=== PATIENT | male | born 1995 | race Caucasian/White ===

== ENCOUNTER 2021-10-17 11:05 | Emergency (ER) | payer OTHER, SELFPAY ==
[2021-10-17 11:14] VITALS: BP 150/83; PULSE 81; RESP 18; TEMP 36.6; O2SAT 100
--- NOTE | 2021-10-17 11:40 | EKG12_ITS ---
Test Reason : CP Blood Pressure : / mmHG Vent. Rate : 083 BPM Atrial Rate : 083 BPM P-R Int : 162 ms QRS Dur : 100 ms QT Int : 366 ms P-R-T Axes : 038 007 024 degrees QTc Int : 430 ms Normal sinus rhythm with sinus arrhythmia Normal ECG Confirmed by SHELLEY BRANHAM, DIANELYS ([id number]), book editor DAVIDA ALY ([id number]) on 10/19/2021 1:08:33 PM Referred By: ER Confirmed By:DIANELYS ROSA MD
--- NOTE | 2021-10-17 11:41 | ED.VIS.CHEST ---
HPI History of Present Illness Chief Complaint: Chest Pain Narrative Narrative: 26-year-old male with no significant medical history presenting with chest pain. He states he had it from about 4-10 30. He states it felt like his chest was little heavy. He does have the symptoms with anxiety and does take an organic drop for this which she did not take this morning. The pain lasted while he was at work and he was checked out by the nurse there who checked his blood pressure and stated it was normal. She stated that she had noticed some irregular heartbeats but other than this he physically looks fine. He has no history of heart disease and has no family history of early cardiac disease. No history of DVT/PE and no risk factors. Patient currently is pain-free. No shortness of breath. No fever or cough. PFSH PFSH Medical History Anxiety Allergy/AdvReac Type Severity Reaction Status Date / Time No Known Allergies Allergy Verified 03/28/14 13:06 Surgical History no surgical history Social History Smoking Status: Never smoker ROS ROS ED Constitutional Constitutional ED: Denies chills or fever(s) Eyes Eyes: Denies blurry vision or change in vision ENT ENT ED: Denies rhinorrhea or sore throat Cardiovascular Cardiovascular: Reports as per HPI Respiratory/Chest Respiratory/Chest: Denies cough, dyspnea or sputum Gastrointestinal Gastrointestinal: Denies abdominal pain, nausea or vomiting Genitourinary Genitourinary ED: Denies dysuria or hematuria Musculoskeletal Musculoskeletal: Denies arthralgias or myalgias Integumentary Denies rash Neurologic Neurologic: Denies headache(s), paresthesias or weakness Psychiatric Psychiatric: Reports anxiety; Denies depression EXAM Physical Exam Const Vital Signs: 10/17/21 11:14 10/17/21 11:44 Temperature 97.9 F Temperature Source Temporal Pulse Rate 81 Respiratory Rate 18 Blood Pressure 150/83 H Blood Pressure Mean 105 Pulse Ox 100 Oxygen Delivery Method Room Air Room Air Positive well nourished General Appearance ED: NAD; Negative for pallor HEENT Reports moist mucous membranes normocephalic and atraumatic Eyes PERRL and EOMs intact bilaterally Chest Wall inspection of chest normal and palpation of chest normal Resp normal respiratory effort and clear to auscultation bilaterally Auscultation: Negative for rales, rhonchi or wheezes Cardio regular rate and regular rhythm Extremity normal to inspection General Extremety ED: Negative for edema or tenderness General Extremity: Negative for edema Neuro oriented x3 Sensorium / Orientation: awake and alert Psych mental status grossly normal Skin General Skin Exam: Negative for jaundice or pallor Heart Score History: Slightly/Non-Suspicious ECG: Normal Age: </= 45 years Risk Factors: No Risk Factors Troponin: </= Normal Limit Score: 0 MDM MDM MDM Narrative Medical decision making narrative: 26-year-old male presenting with history of chest pain this morning. He stated it felt like heaviness. It did not radiate. He had no lightheadedness or dizziness. No shortness of breath. He was seen by the nurse at work and she told him that he had an irregular heart rhythm on the monitor. EKG on my interpretation shows a normal sinus rhythm with a ventricular rate of 83 bpm with a slight sinus arrhythmia. No ST elevation or depression. CBC and BMP are unremarkable. Patient is PERC negative. High-sensitivity troponin is less than 3 and given that he had pain for about 6 hours I believe this rules out ACS. Patient has no other risk factors. Patient stable for discharge at this time. Impression: 1. Chest pain, noncardiac 2. Palpitations Lab Data Attestation: I reviewed the patient's lab results. Labs: Laboratory Results - last 24 hr 10/17/21 10/17/21 10/17/21 11:20 11:20 11:20 WBC 6.1 RBC 4.77 Hgb 14.6 Hct 42.1 MCV 88.3 MCH 30.6 MCHC 34.7 RDW Std Deviation 37.3 RDW Coeff of Mayela 11.5 L Plt Count 292 MPV 10.0 Immature Gran % (Auto) 0.500 Neut % (Auto) 59.3 Lymph % (Auto) 26.2 [place] % (Auto) 10.0 Eos % (Auto) 3.5 Baso % (Auto) 0.5 Absolute Neuts (auto) 3.6 Absolute Lymphs (auto) 1.59 Nucleated RBC % 0 Sodium 136 Potassium 3.7 Chloride 103 Carbon Dioxide 30.0 Anion Gap 3 L BUN 11 Creatinine 0.88 Estim Creat Clear Calc 173.52 Est GFR (MDRD) Af Amer 135 Est GFR (MDRD) Non-Af 111 BUN/Creatinine Ratio 12.4 Glucose 99 Calcium 8.8 Troponin I High Sens < 3 L Radiography Diagnostic Testing: Clinical Impression(s) from Imaging Studies Chest X-Ray 10/17/21 11:52 IMPRESSION: Normal x-ray examination of the chest. Electronically Signed: Mitchell Deutsch MD at 12:05 EDT Reading Location ID and State: [facility] / [place] , Service support , Discharge Plan Triage Chief Complaint: Chest Pain ED Provider: Brent Jnoes Dx/Rx/DC Orders Primary Care Provider: Care Physician,No Primary
[2021-10-17] MEDS: Aspirin 81 MG TAB.CHEW 324 MG PO (11:48)
--- NOTE | 2021-10-17 11:52 | RAD_ITS ---
STUDY: X-RAY CHEST REASON FOR EXAM: Male, 26 years old. Chest pain TECHNIQUE: Single AP portable view of the chest. COMPARISON: Comparison is made with prior study dated 03/28/2014. FINDINGS: EKG electrodes are seen. The lungs are clear and expanded. There is no demonstrated pleural abnormality. Normal size heart. Normal mediastinum and tad. Normal visualized pulmonary arteries. Normal visualized aortic arch and descending thoracic aorta. Normal visualized thoracic spine. Normal visualized ribs, clavicles, and shoulders. There is no demonstrated abnormality of the visualized soft tissue structures of the upper abdomen. RAD/Chest 1 View (Portable) IMPRESSION: Normal x-ray examination of the chest. Electronically Signed: Mitchell Deutsch MD at 12:05 EDT ,
[2021-10-17 12:05] LABS: Absolute Lymphocyte Count 1.59 X10^3/uL (0.83-4.51); Absolute Neutrophil Count 3.6 X10^3/uL (2.0-7.7); Anion Gap 3 (5-15); BUN 11 mg/dL (7-18); BUN/Creat Ratio 12.4 RATIO (10-20); Basophil# 0.03 X10^3/uL; Basophil% 0.5 % (0-1); Calcium,Total 8.8 mg/dL (8.5-10.1); Chloride 103 mmol/L (98-107); Creatinine, Serum 0.88 mg/dL (0.70-1.30); EST Glomerular Filtration Rate 111 mL/min (>60); Eosinophil# 0.21 X10^3/uL; Eosinophils% 3.5 % (0-5); Est Glom Filt Rate - Afr Amer 135 mL/min (>60); Estimated Creatinine Clearance 173.52 ml/min; Glucose 99 mg/dL (74-106); Hematocrit 42.1 % (40-54); Hemoglobin 14.6 g/dL (13.0-16.5); Lymphocyte # 1.59 X10^3/ul (0.83-4.51); Lymphocyte % 26.2 % (19-41); Mean Corp Hgb Conc 34.7 g/dL (32-36); Mean Corpuscular Hgb 30.6 pg (27.0-32.0); Mean Corpuscular Volume 88.3 fL (80-94); Monocyte# 0.61 X10^3/uL; NRBC Flagged by Analyzer 0 % (0-5); Neutrophil # 3.61 X10^3/uL (2.7-7.7); Neutrophil % 59.3 % (47-70); Platelet Count 292 K/mm3 (150-450); Potassium 3.7 mmol/L (3.5-5.1); RBC Distribution Width CV 11.5 % (11.6-14.6); RBC Distribution Width SD 37.3 fl (35.1-43.9); Red Blood Count 4.77 M/mm3 (4.6-6.2); Sodium Level 136 mmol/L (136-145); White Blood Count 6.1 K/mm3 (4.4-11.0)
[2021-10-17 12:15] LABS: Troponin-I HS (w/2H Reflex) < 3 pg/mL (3.0-78.0)
[2021-10-17 13:47] LABS: Reflex Troponin-HS? (from REC) Y
== END 2021-10-17 12:30 | disposition home or self-care (01) ==
PROVIDERS: Emergency Provider Student in an Organized Health Care Education/Training Program; Visit Provider Student in an Organized Health Care Education/Training Program
DX: R07.89 Other chest pain (principal); R00.2 Palpitations
CPT/HCPCS: 71045; 80048; 84484; 85025; 93005; 99284; A4216

== ENCOUNTER 2024-01-16 10:17 | Emergency (ER) | payer BC, SELFPAY ==
[2024-01-16 10:18] VITALS: BP 125/85; PULSE 58; RESP 16; TEMP 36.4; O2SAT 97; BMI 28.1
[2024-01-16 10:20] VITALS: BP 125/85; PULSE 52; RESP 16; TEMP 36.4; O2SAT 97
--- NOTE | 2024-01-16 10:46 | EDS_ITS ---
HPI History of Present Illness Chief Complaint: Dental Informant: patient Onset/Context/Timing Onset: Days (3) Context: Gradual Onset Timing: Continuous Quality: Aching Location: Right lower molar Worsened by: Nothing Relieved by: - (Nothing) Associated Symptoms Assocated Symptom - Dental: Negative for fever, jaw swelling, face swelling, cold sensitivity or hot sensitivity Narrative Narrative: Patient presents with right lower dental pain that began 3 days ago. Patient states he went to urgent care and was given a prescription for amoxicillin. Patient states he has been on amoxicillin for the past 2 days. Patient states his pain has improved. Patient describes the pain as aching. Patient states the pain is mainly over the right lower molar. Patient states nothing makes his pain better and nothing makes it worse. Patient admits to some hot and cold sensitivity yesterday but denies any sensitivity today. Patient denies any fevers or chills. Patient denies any swelling of his jaw or face. Patient sta del he did have some nausea and vomiting yesterday but this has resolved. Patient states he does not have a dentist. PFSH PFS Medical History Anxiety Allergy/AdvReac Type Severity Reaction Status Date / Time No Known Allergies Allergy Verified 01/16/24 10:20 no surgical history Social History Smoking Status: Never smoker ROS ROS ED Constitutional Constitutional ED: Denies chills or fever(s) Eyes Eyes: Denies blurry vision or change in vision ENT ENT ED: Denies rhinorrhea or sore throat Cardiovascular Cardiovascular: Denies chest pain or palpitations Respiratory/Chest Respiratory/Chest: Denies cough or dyspnea Gastrointestinal Gastrointestinal: Reports nausea and vomiting Genitourinary Genitourinary ED: Denies dysuria or hematuria Musculoskeletal Musculoskeletal: Denies back pain or neck pain Integumentary Denies abscess or rash Neurologic Neurologic: Denies headache(s) or weakness Allergic/Immunologic Allergic/Immunologic ED: Denies mouth swelling or urticaria EXAM Physical Exam Const Vital Signs: 01/16/24 10:18 01/16/24 10:20 Temperature 97.6 F L 97.6 F L Temperature Source Temporal Temporal Pulse Rate 58 L 52 L Respiratory Rate 16 16 Blood Pressure 125/85 H 125/85 H Blood Pressure Mean 98 98 Pulse Ox 97 97 Oxygen Delivery Method Room Air Room Air Positive well nourished and well developed General Appearance ED: well developed and NAD HEENT HEENT Narrative: There is a large dental carry over the right lower second molar. There is tend erness to percussion of this tooth. There is also a dental carry of the left lower second molar. There is no gingival edema noted. There is no sublingual edema. There is no anterior neck swelling. There is no evidence of Dick's angina. Oropharynx is clear. Airway is patent. Mouth ED: Yes oral and palatal mucosa normal Mouth: oral and palatal mucosa normal Teeth and Gingiva: caries Throat: posterior oropharynx normal Neck supple and no JVD General: Negative for anterior neck swelling, tenderness or submandibular swelling Neuro oriented x3, CN's II-XII intact bilaterally, moves all extremities, no focal motor deficits and no sensory deficits noted Sensorium / Orientation: alert Motor Exam: strength 5/5 throughout MDM MDM MDM Narrative Medical decision making narrative: Patient was advised that the amoxicillin seems to be covering his dental infection well. Patient was instructed to continue the amoxicillin as previously prescribed. Patient was instructed to continue Tylenol or ibuprofen as needed for pain. Patient was given a dental referral. Patient was instructed to follow-up in 5 to 7 days for evaluation and treatment of his dental caries. Patient understood and was agreeable with the plan. All questions were answered. Discharge Plan Triage Chief Complaint: Dental ED Provider: Tevin Multani Dx/Rx/DC Orders Clinical Impression: Infected dental caries, Odontalgia Instructions: ED Dental Pain, ED Dental Cavity Primary Care Provider: Care Physician,No Primary Referrals: Care Physician,No Primary [Primary Care Provider] - Dentist,Your [STAFF PHYSICIAN] - 5-7 Days Print Language: Telugu Disposition Disposition: Home, Self Care
[2024-01-16 11:16] VITALS: BP 122/69; PULSE 72; RESP 18; TEMP 36.7; O2SAT 100
== END 2024-01-16 11:20 | disposition home or self-care (01) ==
LOC: ED 10:53
PROVIDERS: Emergency Provider Emergency Medicine; Visit Provider Emergency Medicine
DX: K02.9 Dental caries, unspecified (principal); K08.89 Other specified disorders of teeth and supporting structures
CPT/HCPCS: 99282

== ENCOUNTER → 2024-07-24 | Outpatient (CLI) | payer BC, SELFPAY ==
[2024-07-24 15:14] LABS: Absolute Lymphocyte Count 1.18 X10^3/uL (0.83-4.51); Absolute Neutrophil Count 3.2 X10^3/uL (2.0-7.7); Basophil# 0.02 X10^3/uL; Basophil% 0.4 % (0-1); Eosinophil# 0.02 X10^3/uL; Eosinophils% 0.4 % (0-5); Hematocrit 43.5 % (40-54); Hemoglobin 14.3 g/dL (13.0-16.5); Lymphocyte # 1.18 X10^3/ul (0.83-4.51); Lymphocyte % 24.7 % (19-41); Mean Corp Hgb Conc 32.9 g/dL (32-36); Mean Corpuscular Hgb 30.1 pg (27.0-32.0); Mean Corpuscular Volume 91.6 fL (80-94); Monocyte# 0.37 X10^3/uL; Monocyte% 7.7 % (0-10); NRBC Flagged by Analyzer 0 % (0-5); Neutrophil # 3.18 X10^3/uL (2.7-7.7); Neutrophil % 66.6 % (47-70); Platelet Count 281 K/mm3 (150-450); RBC Distribution Width CV 11.9 % (11.6-14.6); RBC Distribution Width SD 40.3 fl (35.1-43.9); Red Blood Count 4.75 M/mm3 (4.6-6.2); White Blood Count 4.8 K/mm3 (4.4-11.0)
[2024-07-24 16:01] LABS: ALB/GLOB Ratio 1.2 RATIO (0.9-2.4); AST(SGOT) 18 U/L (15-37); Alanine Aminotransfer ALT/SGPT 17 U/L (16-61); Alkaline Phosphatase 88 U/L (45-117); Anion Gap 8 (5-15); BUN 13 mg/dL (7-18); BUN/Creat Ratio 13.9 RATIO (10-20); Calcium,Total 9.2 mg/dL (8.5-10.1); Chloride 104 mmol/L (98-107); Creatinine, Serum 0.94 mg/dL (0.70-1.30); EST Glomerular Filtration Rate 102 mL/min (>60); Est Glom Filt Rate - Afr Amer 124 mL/min (>60); Globulin 3.2 g/dL (2.2-4.2); Glucose 86 mg/dL (74-106); Potassium 3.6 mmol/L (3.5-5.1); Protein, Total 7.2 g/dL (6.4-8.2); Sodium Level 137 mmol/L (136-145); T4 Free Direct 0.97 ng/dL (0.76-1.46); Thyroid Stim Hormone (TSH) 0.477 uIU/mL (0.358-3.740)
[2024-08-05 14:08] LABS: Anti-Thyroglobulin AB 1.1 IU/mL (0.0-0.9); Thyroglobulin RIA < 2.0 ng/mL (.); Thyroid Peroxidase AB 20 IU/mL (0-34); Thyroid Stim Immunoglob <0.10 IU/L (0.00-0.55)
== END | disposition home or self-care (01) ==
LOC: MFPLAB 12:04
PROVIDERS: PCP Family Medicine; Referring Provider Family Medicine; Visit Provider Family Medicine
DX: E01.0 Iodine-deficiency related diffuse (endemic) goiter (principal)
CPT/HCPCS: 36415; 80053; 84432; 84439; 84443; 84445; 85025; 86376; 86800

== ENCOUNTER → 2024-07-29 | Outpatient (CLI) | payer BC, SELFPAY ==
--- NOTE | 2024-07-29 15:43 | US_ITS ---
STUDY: THYROID ULTRASOUND REASON FOR EXAM: Male, 28 years old. THYROMEGALY TECHNIQUE: Ultrasound evaluation of the thyroid was performed with real-time and static julian-scale imaging. COMPARISON: None. FINDINGS: RIGHT LOBE: The right lobe of the thyroid gland measures 5.6 x 2.3 x 1.4 cm. There is a heterogeneous echotexture. Diffuse small hypoechoic nodules and cysts scattered throughout the parenchyma without dominant lesion. Findings consistent with multinodular goiter. LEFT LOBE: The left lobe of the thyroid gland measures 5.6 x 2.0 x 1.5 cm. There is a heterogeneous echotexture. Diffuse small hypoechoic nodules and cysts scattered throughout the parenchyma without dominant lesion. Findings consistent with multinodular goiter. ISTHMUS: The isthmus measures 8 mm. No demonstrated masses or fluid collections or cysts or lymphadenopathy in the surrounding tissues. US/Thyroid IMPRESSION: 1. Diffuse small hypoechoic nodules and cysts scattered throughout the parenchyma without dominant lesion. Findings consistent with multinodular goiter. Mildly enlarged thyroid gland. 2. TR2: 2 points = not suspicious 3. If physical symptoms, abnormal thyroid values or other findings warrant further radiologic assessment repeat the study and consider nuclear medicine iodine 123 or PET/CT if there is concern for malignancy. 4. Targeted image guided biopsy of nodules of interest can also be performed with definitive pathologic assessment and diagnosis. ACR Thyroid Imaging Reporting and Data System (ACR TI-RADS) Reference: COMPOSITION (choose 1): Cystic or almost completely cystic - 0 points Spongiform- 0 points Mixed cystic and solid - 1 point Solid almost completely solid - 2 points ECHOGENICITY (choose 1): Anechoic space - 0 points Hyperechoic or isoechoic-1 point Hypoechoic-2 points Very hypoechoic-3 points SHAPE (choose 1): : Wider than tall-0 points Taller than wide-3 points MARGINS ( smooth, lobular, ill-defined) ECHOGENIC FOCI (macro or microcalcifications) Scoring and classification TR1: 0 points = benign TR2: 2 points = not suspicious TR3: 3 points = mildly suspicious TR4: 4-6 points = moderately suspicious TR5: ?7 points = highly suspicious Recommendations TR1: no FNA required TR2: no FNA required TR3: ?1.5 cm follow up, ?2.5 cm FNA = follow up: 1, 3 and 5 years TR4: ?1.0 cm follow up, ?1.5 cm FNA = follow up: 1, 2, 3 and 5 years TR5: ?0.5 cm follow up, ?1.0 cm FNA = annual follow up for up to 5 years FNA biopsy is recommended for suspicious lesions (TR3-TR5) with the above size criteria. If there are multiple nodules, the two with the highest ACR TI-RADS scores should be sampled (rather than the two largest), with largest size being used a tie-breaker if there are multiple nodules of the same classification. Electronically Signed: Angel Duarte MD at 16:28 EST Reading Location ID and State: [facility] / [place] , Service support ,
== END | disposition home or self-care (01) ==
PROVIDERS: PCP Family Medicine; Referring Provider Family Medicine; Visit Provider Family Medicine
DX: E01.0 Iodine-deficiency related diffuse (endemic) goiter (principal)
CPT/HCPCS: 76536